=== PATIENT | male | born 1960 | race Caucasian/White ===

== ENCOUNTER 2020-05-19 14:40 | Emergency (ER) | payer OTHER ==
[~2020-05-19] VITALS: Ht 188 cm; Wt 86.4 kg
[2020-05-19] MEDS ORDERED: HYDROcodone/acetaminophen 10/325mg tab PO ONE (14:55)
[2020-05-19] MEDS ORDERED: HYDR-4383 PO (15:42)
[2020-05-19 16:15] VITALS: BP 121/69
== END 2020-05-19 16:09 | disposition home or self-care (01) ==
LOC: ER 14:40
DX: S42.001A Fracture of unspecified part of right clavicle, initial encounter for closed fracture (principal); S22.31XA Fracture of one rib, right side, initial encounter for closed fracture; W18.39XA Other fall on same level, initial encounter; Y93.89 Activity, other specified; Y92.89 Other specified places as the place of occurrence of the external cause; Y99.8 Other external cause status
CPT/HCPCS: 29105; 71045; 71046; 73000; 99285

== ENCOUNTER 2023-02-20 11:01 | Day surgery (SDC) | payer BC ==
[2023-02-14 15:14] LABS: BASOPHILS % (AUTO) 0.7 % (0-1); EOSINOPHILS # (AUTO) 0.1 X10'3 (0-0.9); EOSINOPHILS % (AUTO) 1.4 % (0-6); LYMPHOCYTES # (AUTO) 1.7 X10'3 (1.1-4.8); LYMPHOCYTES % (AUTO) 31.5 % (21-51); MEAN CORPUSCULAR HEMOGLOBIN 31.1 PG (27.0-31.0); MEAN CORPUSCULAR HGB CONC 33.2 g/dL (33.0-36.5); MEAN CORPUSCULAR VOLUME 93.6 FL (78-98); MEAN PLATELET VOLUME 8.2 FL (7.4-10.4); MONOCYTES # (AUTO) 0.6 X10'3 (0-0.9); MONOCYTES % (AUTO) 11.5 % (2-12); NEUTROPHILS # (AUTO) 2.9 X10'3 (1.8-7.7); NEUTROPHILS % (AUTO) 54.9 % (42-75); PRE OP HEMATOCRIT 39.2 % (42.0-52.0); PRE OP PLATELET COUNT 235 X10'3 (140-440); PRE OP WHITE BLOOD COUNT 5.3 10'3 (4.8-10.8); RED BLOOD COUNT 4.19 X10'6 (4.70-6.10)
[2023-02-14 15:32] LABS: ALBUMIN 4.2 G/DL (3.4-5.0); ALBUMIN/GLOBULIN RATIO 1.4 (1.1-1.5); ALKALINE PHOSPHATASE 78 IU/L (46-116); BLOOD UREA NITROGEN 17 MG/DL (7-18); CALCIUM 9.5 MG/DL (8.5-10.1); CHLORIDE 105 MMOL/L (99-107); CREATININE 1.06 MG/DL (0.60-1.10); PRE OP ALT 27 U/L (30-65); PRE OP ANION GAP 9 (8-16); PRE OP AST 19 U/L (10-37); PRE OP BILIRUB, TOTAL 0.5 MG/DL (0.0-1.0); PRE OP GLUCOSE 92 MG/DL (70-104); PRE OP POTASSIUM 3.9 MMOL/L (3.4-5.1); PRE OP SODIUM 141 MMOL/L (135-145); TOTAL PROTEIN 7.3 G/DL (6.4-8.2); eGFR 71 ML/MIN
[~2023-02-20] VITALS: Ht 188 cm; Wt 88.8 kg
[2023-02-20] VITALS (18 sets, daily range): BP systolic 108–140; BP diastolic 56–78; PULSE 53–80; RESP 11–16; TEMP 97.3–98.8; O2SAT 90–100
[~2023-02-20 11:01] MED LIST: BUPIVAcaine/PF 2.5mg/ml (0.25%) 10ml vial ONE; IBUP-24 PO; cefazolin 2gm/D5W 100mL 100 ML IV ONE; famotidine 20mg tablet PO ONE; tranexamic acid inj. 1,000 MG in normal saline IV soln 100ML IV ONE; vancomycin 1,500 MG in NS 300ml IV soln IV ONE
[2023-02-20] MEDS: ringers solution, lacted 1,000 ML IV SCH ×2 (12:26→17:35)
[2023-02-20] MEDS ORDERED: propofol inj 20 ML IV ONE (12:40)
[2023-02-20] MEDS ORDERED: fentaNYL /PF 50mcg/ml 5ml ampule ONE ×2 (12:40→14:07)
[2023-02-20] MEDS ORDERED: dexamethasone sod phosphate 4mg/ml inj. ONE (12:41)
[2023-02-20] MEDS ORDERED: LIDOcaine 2% (20mg/ml) 5ml vial ONE (12:41)
[2023-02-20] MEDS ORDERED: ondansetron/PF 4mg/2ml inj ONE (12:41)
[2023-02-20] MEDS ORDERED: sevoflurane 250ml liquid IH ONE (13:05)
[2023-02-20] MEDS ORDERED: rocuronium 10mg/ml inj IV ONE (13:38)
[2023-02-20] MEDS ORDERED: labetalol 20mg/4ml (5mg/ml) syringe IV PRN (13:45)
[2023-02-20] MEDS ORDERED: fentaNYL/PF 50MCG/1 ML 2ML syringe IV PRN (13:45)
[2023-02-20] MEDS ORDERED: morphine 4 MG/ML inj SYRINge IV PRN (13:45)
[2023-02-20] MEDS ORDERED: morphine 2 MG/ML inj. syringe IV PRN (13:45)
[2023-02-20] MEDS ORDERED: ringers solution, lacted 1,000 ML IV SCH (13:45)
[2023-02-20] MEDS ORDERED: ondansetron/PF 4mg/2ml inj IV PRN ×2 (13:45→16:05)
[2023-02-20] MEDS ORDERED: hydrALAZINE 20mg/ml inj. IV PRN (13:45)
[2023-02-20] MEDS ORDERED: acetaminophen 1,000mg/100ml IV 100 ML IV ONE (14:07)
[2023-02-20] MEDS ORDERED: ketorolac trometh. 30mg/ml inj. ONE (14:09)
[2023-02-20] MEDS ORDERED: vancomycin 1,000mg inj ONE (14:55)
[2023-02-20] MEDS ORDERED: fentaNYL/PF 50MCG/1 ML 2ML syringe ONE (14:59)
[2023-02-20] MEDS ORDERED: HYDROmorphone 1 mg/ml syringe IV PRN (16:05)
[2023-02-20] MEDS ORDERED: diphenhydrAMINE 25mg capsule PO PRN ×2 (16:05)
[2023-02-20] MEDS ORDERED: bisacodyl 10mg suppository rectal RC PRN (16:05)
[2023-02-20] MEDS ORDERED: HYDROmorphone inj. 0.5 MG/0.5 ML DISP.SYRIN IV PRN (16:05)
[2023-02-20] MEDS ORDERED: naloxone 0.4 mg/ml inj IV PRN (16:05)
[2023-02-20] MEDS ORDERED: magnesium hydroxide 30ml (MOM) UD suspension PO PRN (16:05)
[2023-02-20] MEDS ORDERED: oxyCODONE IR 5mg (immed. release) tablet PO PRN (16:05)
[2023-02-20] MEDS ORDERED: acetaminophen 325mg tablet PO PRN (16:05)
--- NOTE | 2023-02-20 16:05 | NUR ---
Received from OR via SURGICAL BED , accompanied by Anesthesiologist LINWOOD and report given by Anesthesiolgist. PATIENT WITH 20G PIV IN LEFT UE RUNNING LR AT 100. PATIENT WITH HIP WRAP AND POWDER PACK IN PLACE. REYES CATHETER PRESENT WITH CLEAR YELLOW URINE PRESENT. C.O. PAIN IN RIGHT HIP. MEDICATED UPON ARRIVAL. WILL CONTINUE TO ASSESS AND TREAT FOR PAIN. Addendum: 02/20/23 at 1629 by Grayson Mariscal RN, RN Amended: Links added.
[2023-02-20] MEDS: fentaNYL/PF 50MCG/1 ML 2ML syringe IV PRN ×2 (16:34→16:46)
--- NOTE | 2023-02-20 17:14 | NUR ---
Received from OR via [facility] , accompanied by Anesthesiologist TRISTA and report given by Anesthesiolgist. PATIENT WITH 3 LAP SITES TO ABDOMEN THAT ARE CDI. VSS. DENIES PAIN AT THIS TIME. 2-L MASK ON WITH 97% SATURATIONS. WILL MEDICATE FOR PAIN.
--- NOTE | 2023-02-20 17:15 | NUR ---
PATIENT TAKEN TO ORTHO FLOOR ROOM 401 WITH 2 BAGS OF BELONGINGS AND HOOKED UP TO ALL MONITORS IN ROOM AND REPORT GIVEN TO MAKAYLA PASTOR WHO HAS TAKEN OVER PATIENT CARE. AT BEDSIDE. BED LOW AND CALL LIGHT IN HAND- EUPHEMIO TO SET UP VS. Addendum: 02/20/23 at 1746 by Grayson Mariscal RN, RN Amended: Links added.
[2023-02-20] MEDS: potassium Cl 20mEq in NS 1,000 ML IV SCH (17:36)
[2023-02-20] MEDS: oxyCODONE IR 5mg (immed. release) tablet PO PRN ×2 (17:44→22:48)
--- NOTE | 2023-02-20 18:22 | NUR ---
GAVE REPORT TO MAKAYLA YUN
--- NOTE | 2023-02-20 18:30 | NUR ---
Patient in room ORTHO 4018. I have received report from Love BENAVIDES and had the opportunity to ask questions and assume patient care.
--- NOTE | 2023-02-20 18:42 | NUR ---
Joint surgery consult: Pt admit for hip surgery per EMR. Unable to provide high protein nutrition education in person due to short staffing. Placed written high protein education handout in pt's chart with RD contact information. Will remain available as able. Addendum: 02/20/23 at [address] Amended: Links added.
[2023-02-20] MEDS ORDERED: vancomycin/NS 1 GM ADD-VANTAGE 250 ML IV SCH (20:00)
[2023-02-20] MEDS: acetaminophen 325mg tablet PO SCH (20:25)
[2023-02-20] MEDS: gabapentin 300mg capsule PO SCH (20:25)
[2023-02-20] MEDS ORDERED: tranexamic acid inj. 890 MG in normal saline 100ml IV soln 91.1 ML IV ONE (21:00)
[2023-02-20] MEDS ORDERED: sennosides 8.6mg tablet PO SCH (21:00)
[2023-02-21] MEDS: potassium Cl 20mEq in NS 1,000 ML IV SCH ×2 (01:00→08:05)
[2023-02-21] MEDS: ceFAZolin/D5W- 1GM premix 50 ML IV SCH ×2 (01:22→08:26)
[2023-02-21 02:00] VITALS: BP 103/59; PULSE 58; RESP 13; TEMP 97.7; O2SAT 97
[2023-02-21] MEDS: acetaminophen 325mg tablet PO SCH ×2 (02:45→07:17)
[2023-02-21] MEDS: oxyCODONE IR 5mg (immed. release) tablet PO PRN ×3 (02:52→11:27)
[2023-02-21 06:00] VITALS: BP 106/55; PULSE 51; RESP 14; TEMP 98.3; O2SAT 96
--- NOTE | 2023-02-21 06:23 | NUR ---
Problems reprioritized. Patient report given, questions answered & plan of care reviewed with Didi CRAFT.
[2023-02-21] MEDS: gabapentin 300mg capsule PO SCH (07:17)
[2023-02-21] MEDS ORDERED: enoxaparin 40mg/0.4ml syringe SQ SCH (08:00)
[2023-02-21 11:27] VITALS: RESP 16
--- NOTE | 2023-02-21 11:30 | NUR ---
I have reviewed and agree with interventions, assessments, and documentation by Didi Quiles LVN.
--- NOTE | 2023-02-21 12:05 | NUR ---
Patient discharged home via pov with spouse, personal belongings sent with. ROHAN CDI, PIV d/c'd with tip in tact. Alert and appropriate at the time of discharge.
[2023-02-21] MEDS ORDERED: celeCOXIB 100mg capsule PO SCH (20:00)
[2023-02-22] MEDS ORDERED: acetaminophen 325mg tablet PO PRN (16:05)
== END 2023-02-21 12:05 | disposition home or self-care (01) ==
LOC: PAS 11:01 → ORTHO 4S 16:12 → UNDOADMIN 16:12 → ORTHO 4S 17:00 → PAS 02-21 12:05
PROVIDERS: ATTEND Orthopaedic Surgery
DX: M16.11 Unilateral primary osteoarthritis, right hip (principal); Z98.890 Other specified postprocedural states; Z79.899 Other long term (current) drug therapy
CPT/HCPCS: 27130; 36415; 72170; 80053; 85025; 86885; 86900; 86901; 87081; 93005; 97110; 97116; 97161; C1776; J0131; J0690; J1100; J1170; J1650; J1885; J2270; J2405; J2704; J3010; J3370; J3480; J3490; J7030; J7120; Z7506; Z7508; Z7512; 97530; A4215; A4618; A6258; A6449; A7000; C1758; G0378